=== PATIENT | male | born 1980 | race Hispanic/Latino ===

== ENCOUNTER 2024-09-29 10:43 | Emergency (ER) | payer OTHER ==
[~2024-09-29] VITALS: Ht 185.4 cm; Wt 117.0 kg
--- NOTE | 2024-09-29 11:27 | ERN ---
ED Note History of Present Illness Stated Complaint: CHEST CONGESTION, STEARNS Chief Complaint: Cough Time Seen by MD: 11:06 Dictation: PATIENT IS A 44-YEAR-OLD MALE COMING IN TODAY WITH COMPLAINTS OF FLU-LIKE SYMPTOMS TO INCLUDE FRONTAL HEADACHE, CLEAR RHINITIS, SORE THROAT WITH PAINFUL SWALLOWING AND COUGH WITH THE OCCASIONAL YELLOW-GREEN PHLEGM. STATES THE ONSET WAS 3-4 DAYS PRIOR TO ARRIVAL. WENT TO AN URGENT CARE YESTERDAY AND WAS SEEN IN [place], HE SAID THEY SWABBED HIM FOR FLU COVID AND STREP AND SAMEERA LABS, TOLD HIM TO TAKE [id number] MEDICATIONS AND GO SEE HIS DOCTOR Allergies: Coded Allergies: No Known Allergies (Unverified Allergy, Unknown, 09/29/24) Home Meds Active Scripts Ibuprofen (Ibuprofen 800 mg Tab) 800 Mg Tab, 800 MG PO Q8H PRN for fever or pain, #30 TAB 0 Refills Prov:SHRUTHI JESUS WEB PROGRAMMER 09/29/24 Benzonatate (Tessalon Perles) 100 Mg Cap, 100 MG PO TID for cough, #30 CAP 0 Refills Prov:SHRUTHI JESUS WEB PROGRAMMER 09/29/24 Azithromycin (Zithromax Tri-Francisco) 500 Mg Tablet, 500 MG PO DAILY for 7 Days, #7 TAB Prov:SHRUTHI JESUS WEB PROGRAMMER 09/29/24 Past Medical History Past Medical History: Diabetes-Type II Surgical History: None RN Note Reviewed/Agreed w/PFSH: Yes Review of System Dictation CONSTITUTIONAL: NEGATIVE EXCEPT FOR HPI HEAD/FACE: NEGATIVE EXCEPT FOR HPI EENT: NEGATIVE EXCEPT FOR HPI CLEAR RHINITIS WITH SORE THROAT RESPIRATORY: NEGATIVE EXCEPT FOR HPI PRODUCTIVE COUGH GASTROINTESTINAL/ABDOMINAL: NEGATIVE EXCEPT FOR HPI GENITOURINARY: NEGATIVE EXCEPT FOR HPI MUSCULOSKELETAL: NEGATIVE EXCEPT FOR HPI MALAISE INTEGUMENTARY: NEGATIVE EXCEPT FOR HPI NEUROLOGICAL/PSYCH: NEGATIVE EXCEPT FOR HPI HEMATOLOGIC/LYMPHATIC: NEGATIVE EXCEPT FOR HPI ALL SYSTEMS NEGATIVE, EXCEPT NOTED ABOVE. 13 POINT REVIEW OF SYSTEMS ASSESSED AND ALL NEGATIVE EXCEPT FOR ABOVE. Initial Vital Sign VS Vital Signs Date Time Temp Pulse Resp B/P (MAP) Pulse Ox O2 Delivery O2 Flow Rate FiO2 09/29/24 10:50 97.9 105 16 136/86 95 Room Air 0 09/29/24 11:13 21 Physical Exam Dictation VITAL SIGNS REVIEWED GENERAL APPEARANCE: ALERT, ORIENTED X 3, MODERATE ACUTE DISTRESS, WELL DEVELOPED, NOURISHED. HEAD AND FACE: NON-TRAUMATIC. EYES: PERRL, PINK CONJUNCTIVAS, EYELID NO TRAUMA, ANTERIOR CHAMBER WITH ARCUS SENILIS. EARS: PINNAS INTACT AND NO SIGNS OF TRAUMA OR ERYTHEMA EAR CANALS CLEAR AND NO DISCHARGE TM NO ERYTHEMA NOSE: NO DISCHARGE, NO BLEEDING. OROPHARYNX: MOUTH NORMAL, TONGUE PINK, PHARYNX CLEAR,NO ERYTHEMA, TONSILS 2/4 BILATERALLY CRYPTIC, NO ABSCESSES NOTED, MUCOUS MEMBRANE MOIST UVULA MIDLINE, VOICE IS CLEAR SOME TONSILLAR LYMPHADENOPATHY NECK: SUPPLE, NON-TENDER, NO THYROMEGALY, NO MASSES, NO JVD, NO BRUITS BREAST:DEFERRED CHEST:NO TENDERNESS, NO CREPITUS, NO PARADOXICAL MOVEMENT, NO RETRACTIONS LUNGS:CLEAR, WELL-VENTILATED, SYMMETRIC, NO RALES, NO WHEEZING, NO RHONCHI, NO STRIDOR, GOOD BREATH SOUNDS BILATERALLY HEART: REGULAR RATE, REGULAR RHYTHM, NO MURMUR, NO GALLOPS VASCULAR: NO PERIPHERAL EDEMA, ABDOMEN: SOFT, POSITIVE BOWEL SOUNDS, NONDISTENDED, NO GUARDING, NONTENDER, NO REBOUND, NO MASSES NO HEPATOMEGALY, NO SPLENOMEGALY, NO HENDERSON'S SIGN, NO HERNIAS. RECTAL: DEFERRED GENITAL: DEFERRED NEUROLOGICAL: NORMAL SPEECH, MOTOR FUNCTION INTACT, SENSORY FUNCTION INTACT MUSCULOSKELETAL: NECK NONTENDER, FULL RANGE OF MOTION, BACK NONTENDER, FULL RANGE OF MOTION, EXTREMITIES: NONTENDER, FULL RANGE OF MOTION SKIN: COLOR PINK, DRY, NO TURGOR, NO RASH, NO LACERATIONS, NO ABRASIONS, NO CONTUSIONS. LYMPHATIC: DEFERRED Results (Laboratory/Radiology) Laboratory/Radiology Laboratory Tests Test 09/29/24 11:16 Influenza Type A Antigen Negative For Type A Influenza Type B Antigen Negative For Type B SARS-CoV-2, RNA, NAAT NEGATIVE SARS CoV-2 ELEVEN 50, CHEST X-RAY NEGATIVECHEST 1VW CLINICAL HISTORY: COUGH COMPARISON: None TECHNIQUE: Single view of the chest was obtained. FINDINGS: Lungs are clear. The cardiac size and mediastinum are unremarkable. The bony structures are within normal limits. IMPRESSION: No acute cardiopulmonary process Labs Reviewed?: Yes ED Course ED Course Orders Procedure Category Date Status Time Covid Rna Naat LAB 09/29/24 Complete 10:53 Influenza Type A & B, LAB 09/29/24 Complete Rapid 10:53 Chest 1vw RAD 09/29/24 Resulted 10:53 Dexamethasone 4mg/Ml PHA 09/29/24 Complete 1ml Vial (Dexametha 11:30 Ketorolac 60mg/2ml PHA 09/29/24 Complete (Toradol 60mg/2ml) 11:30 Current Medications Medications (Trade) Dose Ordered Sig/Salud Route PRN Reason Start Time Stop Time Status Last Admin Dose Admin Dexamethasone Sodium Phosphate (dexaMETHasone 4MG/ML 1ML VIAL) 8 mg ONCE ONCE IM 09/29/24 11:30 09/29/24 11:31 DC 09/29/24 11:51 Ketorolac Tromethamine (toRADol 60MG/ 2ML) 60 mg ONCE ONCE IM 09/29/24 11:30 09/29/24 11:31 DC 09/29/24 11:51 Vital Signs Date Time Temp Pulse Resp B/P (MAP) Pulse Ox O2 Delivery O2 Flow Rate FiO2 09/29/24 12:51 97.2 98 18 128/80 96 Room Air* 0 21 09/29/24 11:13 97.9 105 16 136/86 95 Room Air* 0 09/29/24 10:50 97.9 105 16 136/86 95 Room Air 0 1158 ALL LABS NEGATIVE, CHEST X-RAY CLEAR PATIENT WILL BE TREATED EMPIRICALLY FOR ACUTE Medical Decision Making MDM MEDICAL DISCHARGE MAKING BASED ON SWABS FOR FLU COVID AND STREP, CHEST X-RAY CHEST X-RAY CLEAR, SWABS NEGATIVE PATIENT WILL BE TREATED EMPIRICALLY FOR ACUTE TONSILLITIS UNSPECIFIED AND COUGH. TOLD TO SEE HIS PRIMARY CARE DOCTOR ON TUESDAY FOR FOLLOW UP DX & DISP Disposition: Discharge Departure Impression: Primary Impression: Acute tonsillitis, unspecified Additional Impression: Cough Condition: Stable Scripts Ibuprofen (Ibuprofen 800 mg Tab) 800 Mg Tab 800 MG PO Q8H PRN for fever or pain, #30 TAB 0 Refills Prov: SHRUTHI JESUS WEB PROGRAMMER 09/29/24 Benzonatate (Tessalon Perles) 100 Mg Cap 100 MG PO TID for cough, #30 CAP 0 Refills Prov: SHRUTHI JESUS WEB PROGRAMMER 09/29/24 Azithromycin (Zithromax Tri-Francisco) 500 Mg Tablet 500 MG PO DAILY for 7 Days, #7 TAB Prov: SHRUTHI JESUS WEB PROGRAMMER 09/29/24 Additional Instructions: FOLLOW-UP WITH PRIMARY CARE PROVIDER IN 1 TO 2 DAYS. TAKE MEDICATIONS DIRECTED HERE IN THE EMERGENCY ROOM. OKAY TO CONTINUE HOME MEDICATIONS UNLESS OTHERWISE DISCUSSED DURING YOUR VISIT IN THE EMERGENCY ROOM TODAY. RETURN TO YOUR NEAREST EMERGENCY ROOM IF SYMPTOMS WORSEN OR IF THERE IS NO IMPROVEMENT. CALL 911 IF YOU NEED IMMEDIATE ASSISTANCE. TAKE TYLENOL OR MOTRIN [id number] NTER NEEDED AND IF NO CONTRAINDICATIONS ARE PRESENT. INCREASE ORAL HYDRATION. A WOUND CULTURE OR URINE CULTURE WAS ORDERED HERE IN THE EMERGENCY ROOM DEPARTMENT PLEASE FOLLOW-UP WITH PRIMARY CARE PROVIDER AND ADVISE THEM TO GET REPEAT PORTS FROM OUR FACILITY. IF YOU HAD ANY EDIS WRAP/SPLINTS THAT WERE APPLIED HERE, PLEASE DO NOT REMOVE THEM UNTIL YOU SEE YOUR PRIMARY CARE OR S PECIALTY. TAKE ANTIBIOTICS DIRECTED UNTIL GONE., USE ALBUTEROL INHALER EVERY4 HOURS WHILE AWAKE FOR THE NEXT THREE DAYS. INCREASE YOUR WATER INTAKE, SEE YOUR PRIMARY CARE DOCTOR ON TUESDAY FOR FOLLOW UP AND EVALUATION Time of Disposition: 12:00 I have reviewed the case, and I agree with, Diagnosis and Plan I performed a substantive portion of the visit. I have reviewed and personally made and approve the management plan that is documented in the notes by myself with OMAR/resident. I acknowledged full responsibility for the patient's management plan. SHRUTHI JESUS NP Sep 29, 2024 11:26 KATHIE GUZMAN DO Sep 29, 2024 18:12
[2024-09-29 11:47] LABS: SARS-CoV-2, RNA, NAAT NEGATIVE SARS CoV-2 (NEGATIVE)
[2024-09-29] MEDS: dexaMETHasone SOD PHOSPHATE 4 MG/ML 1ML VIAL IM ONE (11:51)
[2024-09-29] MEDS: ketOROlac 60 MG VIAL (30MG/ML) IM ONE (11:51)
--- NOTE | 2024-09-29 11:52 | HMCIMG ---
CHEST 1VW CLINICAL HISTORY: COUGH COMPARISON: None TECHNIQUE: Single view of the chest was obtained. FINDINGS: Lungs are clear. The cardiac size and mediastinum are unremarkable. The bony structures are within normal limits. IMPRESSION: No acute cardiopulmonary process identified.
[2024-09-29 11:53] LABS: INFLUENZA TYPE A Negative For Type A (NEGATIVE); INFLUENZA TYPE B Negative For Type B (NEGATIVE)
[2024-09-29] MEDS ORDERED: BENZ-39 PO (12:01)
[2024-09-29] MEDS ORDERED: AZIT500T2 PO (12:01)
[2024-09-29] MEDS ORDERED: IBUP-2077 PO (12:01)
[2024-09-29 12:51] VITALS: BP 128/80; PULSE 98; RESP 18; TEMP 97.1; O2SAT 96
== END 2024-09-29 13:04 | disposition home or self-care (01) ==
LOC: EDH 10:43
DX: J03.90 Acute tonsillitis, unspecified (principal); E11.9 Type 2 diabetes mellitus without complications; Z20.822 Contact with and (suspected) exposure to COVID-19; Z79.899 Other long term (current) drug therapy
CPT/HCPCS: 99284; 71045; 87635; 87804 ×2; 96372 ×2; J1100; J1885